=== PATIENT | female | born 1990 | race Caucasian/White ===

== ENCOUNTER 2017-04-26 09:32 | Observation (INO) | payer OTHER ==
[~2017-04-26] VITALS: Ht 162.6 cm; Wt 58.1 kg
[2017-04-26] MEDS ORDERED: PREN1TAB80 PO (10:03)
[2017-04-26 10:07] VITALS: BP 108/68
[2017-04-26] MEDS ORDERED: DEXTROSE 5%-0.45% SODIUM CHL 1,000 ML IV ONE (10:45)
[2017-04-26] MEDS ORDERED: ONDANSETRON HCL 4 MG/2 ML VIAL IVP ONE (10:45)
== END 2017-04-26 12:35 | disposition home or self-care (01) ==
LOC: 4S 09:32
PROVIDERS: ADMIT Obstetrics & Gynecology; ATTEND Obstetrics & Gynecology
DX: O21.2 Late vomiting of pregnancy (principal); O26.893 Other specified pregnancy related conditions, third trimester; R19.7 Diarrhea, unspecified; Z3A.30 30 weeks gestation of pregnancy
CPT/HCPCS: 59025; 96361; 96374; G0378; J2405; X7700

== ENCOUNTER 2017-05-30 11:00 | Observation (INO) | payer OTHER ==
[~2017-05-30] VITALS: Ht 160 cm; Wt 68.0 kg
[~2017-05-30 11:00] MED LIST: PREN1TAB80 PO
[2017-05-30 12:16] VITALS: BP 104/66
[2017-05-30] MEDS ORDERED: RINGERS SOLUTION,LACTATED 1,000 ML IV SCH (12:45)
[2017-05-30] MEDS: RINGERS SOLUTION,LACTATED 1,000 ML IV SCH ×2 (13:30→18:47)
[2017-05-30] MEDS: DEXTROSE 5%-0.45% SODIUM CHL 1,000 ML IV SCH (20:03)
[2017-05-31] MEDS: DEXTROSE 5%-0.45% SODIUM CHL 1,000 ML IV SCH (01:14)
[2017-05-31 09:51] LABS: APPEARANCE,URINE CLOUDY (CLEAR); BILIRUBIN,URINE NEGATIVE (NEGATIVE); GLUCOSE, URINE (UA) NEGATIVE (NEGATIVE); KETONES,URINE NEGATIVE (NEGATIVE); LEUKOCYTE ESTERASE ,URINE LARGE (NEGATIVE); NITRATE,URINE NEGATIVE (NEGATIVE); OCCULT BLOOD,URINE NEGATIVE (NEGATIVE); PH,URINE 6.5 (5.0-8.0); PROTEIN,URINE NEGATIVE (NEGATIVE)
[2017-05-31 09:59] LABS: SQUAMOUS EPITHELIAL CELL,UR Many /LPF (None Seen)
[2017-05-31 10:00] LABS: BACTERIA,URINE Few /HPF (None Seen); RBC,URINE 0-2 /HPF (0-2)
== END 2017-05-31 10:30 | disposition home or self-care (01) ==
LOC: EMS 11:07 → 4S 11:15 → EDSTATUS 11:56
PROVIDERS: ADMIT Obstetrics & Gynecology; ATTEND Obstetrics & Gynecology
DX: O21.0 Mild hyperemesis gravidarum (principal); O26.893 Other specified pregnancy related conditions, third trimester; R10.9 Unspecified abdominal pain; R19.7 Diarrhea, unspecified; Z3A.35 35 weeks gestation of pregnancy
CPT/HCPCS: 59025 ×2; 81001; 87086; 96360; 96361 ×2; G0378 ×2; J7120; X7700 ×2

== ENCOUNTER 2017-06-15 01:30 | Inpatient (IN) | payer OTHER ==
[~2017-06-15] VITALS: Ht 162.6 cm; Wt 63.0 kg
[2017-06-15 02:06] VITALS: BP 110/73
[2017-06-15] MEDS ORDERED: OXYTOCIN 30 UNITS/LACT RINGERS 500 ML IV ONE (02:45)
[2017-06-15] MEDS ORDERED: FentaNYL CITRATE-PF 100 MCG/2 ML VIAL IVP PRN (02:45)
[2017-06-15] MEDS ORDERED: METOCLOPRAMIDE HCL 5 MG/ML 2 ML VIAL IVP PRN (02:45)
[2017-06-15] MEDS ORDERED: CITRIC ACID/SODIUM CITRATE 30 ML SOLUTION UDCUP PO PRN (02:45)
[2017-06-15] MEDS ORDERED: RINGERS SOLUTION,LACTATED 1,000 ML IV PRN (02:45)
[2017-06-15 03:22] LABS: BASOPHILS % (AUTO) 0.2 % (0.0-2.0); EOSINOPHILS % (AUTO) 1.2 % (1.0-6.0); HEMATOCRIT 37.2 % (36-46); HEMOGLOBIN 12.6 g/dL (12.0-16.0); LYMPHOCYTES # (AUTO) 1.9 K/uL (1.0-4.8); LYMPHOCYTES % (AUTO) 22.4 % (22.0-44.0); MEAN CORPUSCULAR HEMOGLOBIN 29.8 pg (26.0-34.0); MEAN CORPUSCULAR HGB CONC 33.9 G/dL (31.0-37.0); MEAN CORPUSCULAR VOLUME 88 fL (80-100); MONOCYTES # (AUTO) 0.8 K/uL (0.1-1.0); NEUTROPHILS # (AUTO) 5.7 K/uL (1.8-7.7); NEUTROPHILS % (AUTO) 67.2 % (40.0-70.0); PLATELET COUNT (AUTO)-OB 340 K/uL (150-450); RED BLOOD CELL COUNT(AUTO) 4.22 MIL/uL (4.00-5.20); RED CELL DISTRIBUTION WIDTH 13.1 % (11.5-14.5)
[2017-06-15] MEDS: RINGERS SOLUTION,LACTATED 1,000 ML IV SCH ×2 (03:24→07:15)
[2017-06-15] MEDS ORDERED: ROPIVACAINE HCL 0.2% 100 ML ED ONE (03:28)
[2017-06-15] MEDS ORDERED: AMPICILLIN SODIUM 2 GM/NS 100 ML IV ONE (03:30)
[2017-06-15] MEDS ORDERED: ROPIVACAINE HCL 0.2% 100 ML ED PRN (03:54)
[2017-06-15] MEDS ORDERED: ONDANSETRON HCL 4 MG/2 ML VIAL IVP PRN (04:00)
[2017-06-15] MEDS ORDERED: PROMETHAZINE HCL 12.5 MG in SODIUM CHLORIDE 0.9% 50 ML IV PRN (04:00)
[2017-06-15] MEDS ORDERED: NALBUPHINE HCL 10 MG/ML VIAL IVP PRN (04:00)
[2017-06-15] MEDS ORDERED: DiphenhydrAMINE HCL 50 MG/ML VIAL IVP PRN (04:00)
[2017-06-15] MEDS ORDERED: OXYTOCIN 30 UNITS/LACT RINGERS 500 ML IV PRN (04:30)
[2017-06-15] MEDS ORDERED: INFLUENZA VIRUS VACCINE QVS 2017-18 (3YR+)/PF 60 MCG/0.5 ML SYRINGE IM ONE (05:30)
[2017-06-15] MEDS ORDERED: AMPICILLIN SODIUM 1 GM/NS 50 ML IV SCH (07:30)
[2017-06-15] MEDS ORDERED: OXYGEN THERAPY IH SCH (08:00)
[2017-06-15] MEDS ORDERED: OxyCODONE HCL/ACETAMINOPHEN 5-325 MG TABLET PO PRN (11:00)
[2017-06-15] MEDS ORDERED: LANOLIN 7 GM OINTMENT TP PRN (11:00)
[2017-06-15] MEDS ORDERED: BENZOCAINE 20%/MENTHOL 56 GM SPRAY CANISTER TP PRN (11:00)
[2017-06-15] MEDS ORDERED: GLYCERIN/WITCH HAZEL LEAF 40 PADS JAR TP PRN (11:00)
[2017-06-15] MEDS: OxyCODONE HCL/ACETAMINOPHEN 5-325 MG TABLET PO PRN ×2 (16:16→23:14)
[2017-06-15] MEDS: MAGNESIUM HYDROXIDE SUSPENSION 30 ML UDCUP PO PRN (20:34)
[2017-06-16 05:57] LABS: BASOPHILS # (AUTO) 0.01 K/uL (0.00-0.20); BASOPHILS % (AUTO) 0.1 % (0.0-2.0); EOSINOPHILS # (AUTO) 0.04 K/uL (0.00-0.70); EOSINOPHILS % (AUTO) 0.31 % (1.0-6.0); HEMOGLOBIN 10.6 g/dL (12.0-16.0); LYMPHOCYTES # (AUTO) 2.2 K/uL (1.0-4.8); LYMPHOCYTES % (AUTO) 18.4 % (22.0-44.0); MEAN CORPUSCULAR HEMOGLOBIN 29.5 pg (26.0-34.0); MEAN CORPUSCULAR VOLUME 89 fL (80-100); MONOCYTES # (AUTO) 0.8 K/uL (0.1-1.0); MONOCYTES % (AUTO) 6.8 % (2.0-9.0); NEUTROPHILS % (AUTO) 74.5 % (40.0-70.0); PLATELET COUNT (AUTO)-OB 265 K/uL (150-450); RED BLOOD CELL COUNT(AUTO) 3.59 MIL/uL (4.00-5.20); RED CELL DISTRIBUTION WIDTH 13.2 % (11.5-14.5)
[2017-06-16] MEDS: OxyCODONE HCL/ACETAMINOPHEN 5-325 MG TABLET PO PRN (08:42)
[2017-06-16] MEDS: MAGNESIUM HYDROXIDE SUSPENSION 30 ML UDCUP PO PRN (09:38)
[2017-06-16 10:15] LABS: RUBELLA SCREEN (IGG) IMMUNE (IMMUNE)
[2017-06-16] MEDS ORDERED: ACET-66 PO (11:41)
[2017-06-16] MEDS ORDERED: FERR-89 PO (11:42)
[2017-06-16] MEDS ORDERED: DSS100 PO (11:43)
== END 2017-06-16 13:10 | disposition home or self-care (01) | DRG 560 ==
LOC: OBSVTOIN 01:30 → 4S 01:30
PROVIDERS: ADMIT Obstetrics & Gynecology; ATTEND Obstetrics & Gynecology
PROC: 10D07Z6 Extraction of Products of Conception, Vacuum, Via Natural or Artificial Opening (ICD-10-PCS; principal; 2017-06-15)
PROC: 0KQM0ZZ Repair Perineum Muscle, Open Approach (ICD-10-PCS; 2017-06-15)
PROC: 3E0R3BZ Introduction of Anesthetic Agent into Spinal Canal, Percutaneous Approach (ICD-10-PCS; 2017-06-15)
PROC: 00HU33Z Insertion of Infusion Device into Spinal Canal, Percutaneous Approach (ICD-10-PCS; 2017-06-15)
PROC: 3E0234Z Introduction of Serum, Toxoid and Vaccine into Muscle, Percutaneous Approach (ICD-10-PCS; 2017-06-15)
DX: O76 Abnormality in fetal heart rate and rhythm complicating labor and delivery (principal); O70.1 Second degree perineal laceration during delivery; Z3A.37 37 weeks gestation of pregnancy; Z37.0 Single live birth; Z79.899 Other long term (current) drug therapy; Z23 Encounter for immunization
CPT/HCPCS: 86592; 86762; 86850; 86900; 86901; 87340; 89060; 90471; J0290; J2590; J2795; J7120